=== PATIENT | male | born 1990 | race Caucasian/White ===

== ENCOUNTER 2022-01-03 05:12 | Day surgery (SDC) | payer OTHER ==
[~2022-01-03] VITALS: Ht 180.3 cm; Wt 123.0 kg
[~2022-01-03 05:12] MED LIST: ASPIRIN 81 MG CHEWABLE TABLET PO ONE; BISO5TAB33 PO; DIAZEPAM 5 MG TABLET PO ONE; DiphenhydrAMINE HCL 50 MG CAPSULE PO ONE; FURO40 PO; SACU1TAB PO; SODIUM CHLORIDE 0.9% 1,000 ML IV ONE; SODIUM CHLORIDE 0.9% 1,000 ML IV SCH; SPIR-37 PO
[2022-01-03 05:46] LABS: COVID AG,FIA SOURCE NASAL SWAB
[2022-01-03 06:14] LABS: BASOPHILS % (AUTO) 0.6 % (0.0-2.0); EOSINOPHILS % (AUTO) 0.8 % (1.0-6.0); HEMATOCRIT 37.3 % (41-53); HEMOGLOBIN 12.2 g/dL (13.5-17.5); LYMPHOCYTES % (AUTO) 14.6 % (22.0-44.0); MEAN CORPUSCULAR HEMOGLOBIN 25.9 pg (26.0-34.0); MEAN CORPUSCULAR HGB CONC 32.6 G/dL (31.0-37.0); MEAN CORPUSCULAR VOLUME 80 fL (80-100); MONOCYTES # (AUTO) 0.6 K/uL (0.1-1.0); MONOCYTES % (AUTO) 8.5 % (2.0-9.0); NEUTROPHILS # (AUTO) 5.3 K/uL (1.8-7.7); NEUTROPHILS % (AUTO) 75.5 % (40.0-70.0); PLATELET COUNT (AUTO) 255 K/uL (150-450)
[2022-01-03] MEDS ORDERED: DiphenhydrAMINE HCL 50 MG CAPSULE ONE (06:15)
[2022-01-03] MEDS ORDERED: DIAZEPAM 5 MG TABLET ONE (06:15)
[2022-01-03] MEDS ORDERED: ASPIRIN 81 MG CHEWABLE TABLET ONE (06:16)
[2022-01-03 06:24] LABS: ANION GAP 8 mmol/L (8-16); CALCIUM, TOTAL 8.9 mg/dL (8.8-10.5); CARBON DIOXIDE 29 mmol/L (22-29); CHLORIDE 102 mmol/L (98-107); CREATININE 0.94 mg/dL (0.60-1.30); GLUCOSE,RANDOM 104 mg/dL (70-110); POTASSIUM 3.8 mmol/L (3.5-5.1); SODIUM SERUM 139 mmol/L (136-145); UREA NITROGEN, BLOOD 11 mg/dL (7-18)
[2022-01-03 06:25] LABS: GLOMERULAR FILTR. RATE CALC > 60 mL/min (>60)
[2022-01-03 06:28] LABS: INR 1.2 (0.9-1.1); PROTHROMBIN TIME 12.4 SEC (9.4-11.6)
[2022-01-03 06:32] LABS: ALANINE AMINOTRANSFERASE 29 U/L (12-78); ALBUMIN 3.9 g/dL (3.4-5.0); ALKALINE PHOSPHATASE 122 U/L (46-116); ASPARTATE AMINOTRANSFERASE 26 U/L (15-37); BILIRUBIN,TOTAL 2.2 mg/dL (0.1-1.0); TOTAL PROTEIN, SERUM 7.7 g/dL (6.4-8.2)
[2022-01-03] MEDS ORDERED: LIDOCAINE/PF 1% 30 ML VIAL ONE (06:59)
[2022-01-03] MEDS ORDERED: SODIUM BICARBONATE 50 MEQ/50 ML VIAL ONE (06:59)
[2022-01-03] MEDS ORDERED: DIAZEPAM 5 MG TABLET PO ONE (07:00)
[2022-01-03] MEDS ORDERED: ASPIRIN 81 MG CHEWABLE TABLET PO ONE (07:00)
[2022-01-03] MEDS ORDERED: HEPARIN SODIUM 1000 UNITS/NS 1,000 ML ONE (07:00)
[2022-01-03] MEDS ORDERED: IOHEXOL 350 MG/ML 100 ML VIAL ONE (07:00)
[2022-01-03] MEDS ORDERED: DiphenhydrAMINE HCL 50 MG CAPSULE PO ONE (07:00)
[2022-01-03] MEDS ORDERED: SODIUM CHLORIDE 0.9% 1,000 ML IV SCH (07:00)
[2022-01-03 08:07] VITALS: BP 135/82
[2022-01-03] MEDS ORDERED: FentaNYL CITRATE PF 100 MCG/2 ML VIAL ONE (08:07)
[2022-01-03] MEDS ORDERED: MIDAZOLAM HCL 2 MG/2 ML VIAL ONE (08:07)
[2022-01-03] MEDS ORDERED: IOHEXOL 350 MG/ML 100 ML VIAL IARTER ONE (08:15)
[2022-01-03] MEDS ORDERED: LIDOCAINE 1% 30 ML/SOD BICARB 8.4% 4 ML SQ ONE (08:15)
[2022-01-03] MEDS ORDERED: HEPARIN SODIUM 1000 UNITS/NS 1,000 ML IARTER ONE (08:15)
[2022-01-03] MEDS ORDERED: MIDAZOLAM HCL 2 MG/2 ML VIAL IVP ONE ×2 (08:30)
[2022-01-03] MEDS ORDERED: FentaNYL CITRATE PF 100 MCG/2 ML VIAL IVP ONE ×2 (08:30)
[2022-01-03] MEDS ORDERED: HEPARIN SODIUM,PORCINE 1,000 UNITS/ML 10 ML VIAL IVP ONE (09:30)
[2022-01-03] MEDS ORDERED: ATROPINE SULFATE 0.1 MG/ML 10 ML SYRINGE IVP ONE ×2 (09:43→10:00)
[2022-01-03 09:58] VITALS: BP 115/69
== END 2022-01-03 14:00 | disposition home or self-care (01) ==
LOC: CATHLAB 05:12
PROVIDERS: ATTEND Internal Medicine Interventional Cardiology
DX: R94.39 Abnormal result of other cardiovascular function study (principal); Z20.822 Contact with and (suspected) exposure to COVID-19; Z72.89 Other problems related to lifestyle; Z79.899 Other long term (current) drug therapy; Z98.890 Other specified postprocedural states; Z79.01 Long term (current) use of anticoagulants; K76.0 Fatty (change of) liver, not elsewhere classified
CPT/HCPCS: 80053; 85025; 85610; 85730; 36415; 99152; 99153; 93005; 93460; 87426; C1760; C1892; J0461; J3010; J1644; J3490 ×2; J2250; Q9967; C9803